=== PATIENT | male | born 1985 | race African-American/Black ===

== ENCOUNTER 2021-07-10 20:51 | Emergency (ER) | payer SELFPAY ==
[~2021-07-10] VITALS: Ht 182.9 cm; Wt 82.0 kg
[2021-07-10 22:06] LABS: BASO # 0.1 x10^3/uL (0.0-0.2); BASO % 1 % (0-3); EOS # 0.2 x10^3/uL (0.0-0.7); EOS % 3 % (0-3); HEMATOCRIT 31.3 % (39.0-53.0); HEMOGLOBIN 10.5 g/dL (13.0-17.5); LYMPH # 3.1 x10^3/uL (1.0-4.8); LYMPH % 37 % (24-48); MEAN CORPUSCULAR HEMOGLOBIN 30 pg (25-35); MEAN CORPUSCULAR HGB CONC 34 g/dL (31-37); MEAN CORPUSCULAR VOLUME 89 fL (79-100); MONO # 0.9 x10^3/uL (0.0-1.1); MONO % 11 % (0-9); NEUT # 3.9 x10^3/uL (1.8-7.7); NEUT % 48 % (31-73); PLATELET COUNT 271 x10^3/uL (140-400); RED BLOOD COUNT 3.51 x10^6/uL (4.30-5.70); RED CELL DISTRIBUTION WIDTH 14.8 % (11.5-14.5); WHITE BLOOD COUNT 8.2 x10^3/uL (4.0-11.0)
[2021-07-10 22:12] LABS: CALCIUM 8.9 mg/dL (8.5-10.1); CREATININE 1.1 mg/dL (0.7-1.3); GFR 76.6; POTASSIUM 4.7 mmol/L (3.5-5.1)
[2021-07-10 22:17] LABS: ACETAMIN 10.62 mcg/ml (10-30); SALIC 1.1 mg/dL (2.8-20.0)
[2021-07-10 22:18] LABS: ALBUMIN 3.2 g/dL (3.4-5.0); ETHANOL < 10 mg/dL (0-10); MAGNESIUM 1.7 mg/dL (1.8-2.4); TOTAL BILIRUBIN 0.3 mg/dL (0.2-1.0); TOTAL PROTEIN 6.5 g/dL (6.4-8.2)
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
[2021-07-11 00:11] LABS: BACTERIA,URINE 0 /HPF (0-FEW); RBC,URINE 0 /HPF (0-2); WBC,URINE RARE /HPF (0-4)
[2021-07-11 00:12] LABS: AMPHETAMINE/METHAMPHETAMINE NEG (NEG); BARBITURATES NEG (NEG); BENZODIAZEPINES NEG (NEG); CANNABINOIDS NEG (NEG); COCAINE NEG (NEG); METHADONE NEG (NEG); OPIATES POS (NEG); PHENCYCLIDINE NEG (NEG)
--- NOTE | 2021-07-11 05:33 | ED.ADGEN ---
Past Medical History Past Medical History: Depression Past Surgical History: No Surgical History Smoking Status: Never Smoker Alcohol Use: None Physician Documentation Physician Documentation The patient was placed under Observation status at 0100 for ongoing evaluation and risk stratification of their acute suicidal ideation. During their time in observation they received at least 1 of the following/interventions: Cardiopulmonary/pulse oximetry monitoring Aspiration precautions One-to-one monitoring Neuro checks Serial exams and treatments FAMILY HX: [Noncontributory]. Repeat vitals reviewed and stabilized. On re-evaluation at 0600, patient is resting comfortably DISPOSITION: PAT team assessed patient at bedside. PAT team pending discussion with [facility] case finisher given questionable story of being brought to ED via EMS from [facility] and recently discharged from [facility]. It is determined that the patient requires ongoing observation and treatment, and care is signed out to the oncoming provider. Observation to continue under their supervision. JANET PARRA MD July 11, 2021 05:33
[2021-07-11] MEDS ORDERED: IBUPROFEN 200 MG TABLET. PO ONE (13:15)
--- NOTE | 2021-07-11 14:04 | EKG ---
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
[2021-07-11 15:47] VITALS: BP 140/86
[2021-07-12] MEDS ORDERED: ONDA4TAB12 PO (16:40)
== END 2021-07-11 18:02 ==
LOC: ER 20:51
DX: R45.851 Suicidal ideations (principal); F32.9 Major depressive disorder, single episode, unspecified; Z20.822 Contact with and (suspected) exposure to COVID-19
CPT/HCPCS: 80053; 80307; 80329; 81001; 83735; 85025; 87426; 93005; 99285; G0480; U0003

== ENCOUNTER 2021-07-12 14:32 | Emergency (ER) | payer SELFPAY ==
[~2021-07-12] VITALS: Ht 180.3 cm; Wt 81.8 kg
[2021-07-12] MEDS ORDERED: IV RINGERS,LACTATED 1000ML 1,000 ML IV ONE (15:15)
[2021-07-12] MEDS ORDERED: ONDANSETRON PF 4 MG/2 ML VIAL. IVP ONE (15:15)
[2021-07-12 15:19] LABS: BASO # 0.2 x10^3/uL (0.0-0.2); BASO % 2 % (0-3); EOS # 0.1 x10^3/uL (0.0-0.7); EOS % 1 % (0-3); HEMATOCRIT 30.1 % (39.0-53.0); LYMPH # 1.9 x10^3/uL (1.0-4.8); LYMPH % 25 % (24-48); MEAN CORPUSCULAR HEMOGLOBIN 29 pg (25-35); MEAN CORPUSCULAR HGB CONC 33 g/dL (31-37); MEAN CORPUSCULAR VOLUME 89 fL (79-100); MONO # 0.9 x10^3/uL (0.0-1.1); MONO % 12 % (0-9); NEUT # 4.6 x10^3/uL (1.8-7.7); NEUT % 60 % (31-73); PLATELET COUNT 281 x10^3/uL (140-400); RED CELL DISTRIBUTION WIDTH 15.7 % (11.5-14.5); WHITE BLOOD COUNT 7.7 x10^3/uL (4.0-11.0)
[2021-07-12 15:31] LABS: CALCIUM 9.3 mg/dL (8.5-10.1); CREATININE 0.8 mg/dL (0.7-1.3); GFR 133.9; POTASSIUM 4.6 mmol/L (3.5-5.1)
[2021-07-12 15:37] LABS: ALBUMIN 3.4 g/dL (3.4-5.0); ALBUMIN/GLOBULIN RATIO 1.1 (1.0-1.7); TOTAL BILIRUBIN 0.4 mg/dL (0.2-1.0); TOTAL PROTEIN 6.5 g/dL (6.4-8.2)
[2021-07-12 15:59] LABS: BACTERIA,URINE 0 /HPF (0-FEW); RBC,URINE 0 /HPF (0-2); WBC,URINE 0 /HPF (0-4)
[2021-07-12 16:04] LABS: BARBITURATES NEG (NEG); BENZODIAZEPINES NEG (NEG); CANNABINOIDS NEG (NEG); COCAINE NEG (NEG); METHADONE NEG (NEG); OPIATES NEG (NEG); PHENCYCLIDINE NEG (NEG)
[2021-07-12 16:06] LABS: AMPHETAMINE/METHAMPHETAMINE NEG (NEG)
[2021-07-12] MEDS ORDERED: ONDA4TAB12 PO (16:40)
--- NOTE | 2021-07-12 16:41 | PHYS DOC ---
Past Medical History Past Medical History: Depression Additional Past Medical Histor: SI (GISSELL HAWLEY) Past Surgical History: No Surgical History (GISSELL HAWLEY) Smoking Status: Never Smoker Alcohol Use: None Drug Use: Opiates (GISSELL HAWLEY) General Adult EDM: Chief Complaint: DIZZY/LIGHT HEADED HPI: HPI: Patient is a 36 year old male who presents with dizziness and nausea that began today around 1100. Patient was transferred yesterday from the emergency department here to [facility] for psychiatric stabilization. Patient denies any substance use. He denies abdominal pain, emesis, diarrhea, constipation, paresthesias, syncope. (GISSELL HAWLEY) Review of Systems: Review of Systems: Constitutional: Denies fever, chills or generalized weakness Eyes: Denies change in visual acuity, visual field deficits or discharge HENT: Denies ear pain, nasal congestion or sore throat Respiratory: Denies cough or shortness of breath Cardiovascular: Denies chest pain, palpitations or edema GI: See HPI : Denies dysuria or hematuria Musculoskeletal: Denies back pain or joint pain Integument: Denies rash or other skin lesion Neurologic: See HPI (GISSELL HAWLEY) Heart Score: C/O Chest Pain: No (GISSELL HAWLEY) Current Medications: Current Medications Medications (Trade) Dose Ordered Sig/Sasha Start Time Stop Time Status Last Admin Dose Admin Ondansetron HCl (Zofran) 4 mg 1X ONCE 07/12/21 15:15 07/12/21 15:16 DC 07/12/21 15:52 4 MG Ringer's Solution 1,000 ml @ 1,000 mls/hr 1X ONCE 07/12/21 15:15 07/12/21 16:14 DC 07/12/21 15:49 1,000 MLS/HR (GISSELL HAWLEY) Allergies: Allergies: Allergies Coded Allergies Type Severity Reaction Last Updated Verified Latex, Natural Rubber Allergy Intermediate UNKNOWN 07/11/21 Yes (GISSELL HAWLEY) Physical Exam: PE: Constitutional: Well developed, well nourished, no acute distress, non-toxic appearance. HENT: Normocephalic, healing ecchymosis noted in right periorbital region, bilateral external ears normal, nose normal. Eyes: PERRL, EOMI, conjunctiva normal, no discharge. Neck: Normal range of motion, no tenderness, no stridor. Cardiovascular: Heart regular rhythm. Heart regular rate. Lungs & Thorax: Equal thoracic expansion, no increased work of breathing, no chest wall tenderness or crepitus appreciated. Skin: Warm, dry, no erythema, no rash. Extremities: No cyanosis, no clubbing, ROM intact, no edema. Neurologic: Alert and oriented x4, normal motor function, normal sensory function, no focal deficits noted. (GISSELL HAWLEY) Current Patient Data: Labs: Laboratory Tests Test 07/12/21 14:43 07/12/21 15:35 White Blood Count 7.7 x10^3/uL (4.0-11.0) Red Blood Count 3.40 x10^6/uL (4.30-5.70) L Hemoglobin 10.0 g/dL (13.0-17.5) L Hematocrit 30.1 % (39.0-53.0) L Mean Corpuscular Volume 89 fL (79-100) Mean Corpuscular Hemoglobin 29 pg (25-35) Mean Corpuscular Hemoglobin Concent 33 g/dL (31-37) Red Cell Distribution Width 15.7 % (11.5-14.5) H Platelet Count 281 x10^3/uL (140-400) Neutrophils (%) (Auto) 60 % (31-73) Lymphocytes (%) (Auto) 25 % (24-48) Monocytes (%) (Auto) 12 % (0-9) H Eosinophils (%) (Auto) 1 % (0-3) Basophils (%) (Auto) 2 % (0-3) Neutrophils # (Auto) 4.6 x10^3/uL (1.8-7.7) Lymphocytes # (Auto) 1.9 x10^3/uL (1.0-4.8) Monocytes # (Auto) 0.9 x10^3/uL (0.0-1.1) Eosinophils # (Auto) 0.1 x10^3/uL (0.0-0.7) Basophils # (Auto) 0.2 x10^3/uL (0.0-0.2) Sodium Level 143 mmol/L (136-145) Potassium Level 4.6 mmol/L (3.5-5.1) Chloride Level 106 mmol/L (98-107) Carbon Dioxide Level 27 mmol/L (21-32) Anion Gap 10 (6-14) Blood Urea Nitrogen 16 mg/dL (8-26) Creatinine 0.8 mg/dL (0.7-1.3) Estimated GFR (Cockcroft-Gault) 133.9 BUN/Creatinine Ratio 20 (6-20) Glucose Level 81 mg/dL (70-99) Calcium Level 9.3 mg/dL (8.5-10.1) Magnesium Level 2.0 mg/dL (1.8-2.4) Total Bilirubin 0.4 mg/dL (0.2-1.0) Aspartate Amino Transferase (AST) 12 U/L (15-37) L Alanine Aminotransferase (ALT) 17 U/L (16-63) Alkaline Phosphatase 47 U/L (46-116) Troponin I High Sensitivity 6 ng/L (4-75) Total Protein 6.5 g/dL (6.4-8.2) Albumin 3.4 g/dL (3.4-5.0) Albumin/Globulin Ratio 1.1 (1.0-1.7) Urine Collection Type Unknown Urine Color (Auto) Colorless Urine Turbidity Clear Urine pH (Auto) 8.0 (<5.0-8.0) Urine Specific [place] 1.015 (1.000-1.030) Urine Protein (Auto) Negative mg/dL (Negative) Urine Glucose (Auto)(UA) Negative mg/dL (Negative) Urine Ketones (Auto) Negative mg/dL (Negative) Urine Blood (Auto) Negative (Negative) Urine Nitrite Negative (Negative) Urine Bilirubin (Auto) Negative (Negative) Urine Urobilinogen (Auto) Normal mg/dL (Normal) Urine Leukocyte Esterase (Auto) Negative (Negative) Urine RBC 0 /HPF (0-2) Urine WBC 0 /HPF (0-4) Urine Bacteria 0 /HPF (0-FEW) Urine Mucus Slight /LPF Urine Opiates Screen Neg (NEG) Urine Methadone Screen Neg (NEG) Urine Barbiturates Neg (NEG) Urine Phencyclidine Screen Neg (NEG) Urine Amphetamine/Methamphetamine Neg (NEG) Urine Benzodiazepines Screen Neg (NEG) Urine Cocaine Screen Neg (NEG) Urine Cannabinoids Screen Neg (NEG) Urine Ethyl Alcohol Neg (NEG) Laboratory Tests 07/12/21 14:43 Laboratory Tests 07/12/21 14:43 Vital Signs: Vital Signs Date Time Temp Pulse Resp B/P (MAP) Pulse Ox O2 Delivery O2 Flow Rate FiO2 07/12/21 17:28 82 16 112/63 (79) 99 07/12/21 16:03 76 17 107/70 (82) 99 07/12/21 15:33 88 27 117/64 (81) 99 07/12/21 14:44 97.7 89 20 107/59 (75) 98 Room Air 97.7 (GISSELL HAWLEY) EKG: EKG: EKG Interpreted by Dr. Coronado at 1441: Regular rate and rhythm 89 bpm with no ectopic beats. [place] 140 ms/QT 348 ms/QTc 424 ms. No STEMI. (GISSELL HAWLEY) Course & Med Decision Making: Course & Med Decision Making Pertinent Labs and Imaging studies reviewed. (See chart for details) Work-up today is unremarkable. Patient symptoms are improved after administration of Zofran. Patient is requesting a cab voucher to [facility], where he states he is able to stay for the time being. Return precautions were provided. Patient understands and is agreeable to discharge plan. (GISSELL HAWLEY) Dragon Disclaimer: Dragon Disclaimer: This electronic medical record was generated, in whole or in part, using a voice recognition dictation system. (GISSELL HAWLEY) Departure Departure Impression: Primary Impression: Dizziness, nonspecific Additional Impression: Nausea without vomiting Disposition: 01 HOME / SELF CARE / HOMELESS Condition: GOOD Referrals: NO PCP (PCP) Patient Instructions: Dizziness, [id number], Nausea, Adult, [id number] Additional Instructions: EMERGENCY DEPARTMENT GENERAL DISCHARGE INSTRUCTIONS Thank you for coming to [facility] Emergency Department (ED) today and trusting us with you care. We trust that you had a positive experience in our Emergency Department. If you wish to speak to the department management, you may call the director at . YOUR FOLLOW UP INSTRUCTIONS ARE FOLLOWS: 1. Follow up with your primary care doctor. If you do not have a primary doctor, please ask for a resource list of physicians or clinics that may be able to assist you with follow up care. 2. The emergency provider has interpreted your imaging studies, if any were ordered. The radiology landing support specialist also reviewed them. If there is a change in the findings, you will be notified in 48 hours when at all possible. 3. If a lab test or culture has been done, your results will be reviewed and you will be notified if you need a change in treatment. 4. Follow instructions verbalized to you and refer to the printouts if needed. ADDITIONAL INSTRUCTIONS AND INFORMATION: 1. Your care today has been supervised by a physician who is specially trained in emergency care. Many problems require more than one evaluation for a complete diagnosis and treatment. We recommend that you schedule your follow up appointment as recommended to ensure complete treatment of you illness or injury. If you are unable to obtain follow up care and continue to have a pr oblem, or if your condition worsens, we recommend that you return to the ED. 2. We are not able to safely determine your condition over the phone nor are we able to give sound medical advice over the phone. For these safety reasons, if you call for medical advice we will ask you to come to the ED for further evaluation. 3. If you have any questions regarding these discharge instructions please call the ED at . SAFETY INFORMATION: In the interest of safety, wellness, and injury prevention; we encourage you to wear your seat belt, if you smoke; quite smoking, and we encourage family to use a protective helmet for bicycling and other sporting events that present an increased risk for head injury. IF YOUR SYMPTOMS WORSEN OR NEW SYMPTOMS DEVELOP, OR YOU HAVE CONCERNS ABOUT YOUR CONDITION; OR IF YOUR CONDITION WORSENS WHILE YOU ARE WAITING FOR YOUR FOLLOW UP APPOINTMENT; EITHER CONTACT YOUR PRIMARY CARE DOCTOR, THE PHYSICIAN WHOSE NAME AND NUMBER YOU WERE GIVEN, OR RETURN TO THE ED IMMEDIATELY. Scripts Ondansetron (ONDANSETRON ODT) 4 Mg Tab.rapdis 1 TAB PO PRN Q6-8HRS, #20 TAB Prov: GISSELL HAWLEY 07/12/21 Attending Signature Attending Signature I have reviewed the PA/LINSEED OIL BOILER's note and plan of care. I was available for consultation as needed during the patient's visit in the emergency department. I agree with the clinical impression, plan, and disposition. (ALEKS CORONADO DO) GISSELL HAWLEY July 12, 2021 16:40 ALEKS CORONADO DO July 12, 2021 17:56
[2021-07-12 17:28] VITALS: BP 112/63
--- NOTE | 2021-07-16 08:23 | EKG ---
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
== END 2021-07-12 17:31 | disposition home or self-care (01) ==
LOC: ER 14:32
DX: R42 Dizziness and giddiness (principal); R11.2 Nausea with vomiting, unspecified; Z91.040 Latex allergy status
CPT/HCPCS: 36415; 80053; 80307; 81001; 83735; 84484; 85025; 93005; 96361; 96374; 99284; J2405; J7120